=== PATIENT | male | born 1990 | race Caucasian/White ===

== ENCOUNTER 2017-09-04 20:10 | Emergency (ER) | payer MEDICAID, OTHER ==
[~2017-09-04] VITALS: Ht 177.8 cm; Wt 75.0 kg
[~2017-09-04 20:10] MED LIST: ALBU8.5H8 INH
[2017-09-04] MEDS ORDERED: MORPHINE SULFATE 4 MG/ML, 1ML ONE ×2 (20:20→22:49)
[2017-09-04] MEDS: MORPHINE SULFATE 4 MG/ML, 1ML IVPush PRN ×2 (20:26→22:53)
[2017-09-04] MEDS ORDERED: SODIUM CHLORIDE FLUSH 10ML SYR IVF ONE (20:30)
[2017-09-04] MEDS ORDERED: LIDOCAINE-MPF 2% ,5ML ONE (22:26)
[2017-09-04] MEDS ORDERED: LIDOCAINE 2%, 10ML INFIL ONE (22:30)
[2017-09-04 23:52] VITALS: BP 124/67
== END 2017-09-05 00:17 | disposition home or self-care (01) ==
LOC: ED 21:23
DX: S52.601A Unspecified fracture of lower end of right ulna, initial encounter for closed fracture (principal); J45.909 Unspecified asthma, uncomplicated; W19.XXXA Unspecified fall, initial encounter; Y93.89 Activity, other specified; Y92.89 Other specified places as the place of occurrence of the external cause; Y99.8 Other external cause status
CPT/HCPCS: 25605; 96374; 96376